=== PATIENT | female | born 1995 | race Caucasian/White ===

== ENCOUNTER 2017-04-03 22:52 | Inpatient (IN) ==
[2017-04-03] MEDS ORDERED: BRETHINE SUBQ ONE (23:15)
[2017-04-03] MEDS ORDERED: REGLAN IV ONE (23:30)
[2017-04-03] MEDS ORDERED: PEPCID IV ONE (23:30)
[2017-04-03] MEDS ORDERED: DIPRIVAN 1% ONE (23:39)
[2017-04-04] MEDS ORDERED: FENTANYL ONE (00:22)
[2017-04-04 00:23] LABS: BLOOD TYPE ARTERIAL; SAMPLE BLOOD
[2017-04-04] MEDS ORDERED: VERSED ONE (00:24)
[2017-04-04 00:27] LABS: HEMATOCRIT 38.7 % (37.0-47.0); HEMOGLOBIN 13.7 g/dL (12.0-16.0); MCH 32.8 PG (27-31); MCHC 35.4 g/dL (33-37); MCV 92.6 FL (81-99); PLT 191 X1000 (130-400); RBC 4.18 XMIL (4.2-5.4)
[2017-04-04] MEDS ORDERED: LR 1,000 ML IV SCH ×2 (00:30→01:43)
[2017-04-04] MEDS ORDERED: PEPCID PO ONE (00:30)
[2017-04-04] MEDS ORDERED: KEFZOL 1 GM/D5W 1 GM/50 ML IVPB IV PRN (00:30)
[2017-04-04] MEDS ORDERED: REGLAN PO ONE (00:30)
[2017-04-04 00:39] LABS: METHB 1.1 % (0.0-1.5); O2(CT) 8.9 mL/dL (15.0-23.0); SAMPLE BLOOD; THB 16.8 g/dL (11.5-17.4)
[2017-04-04 00:40] LABS: LACTATE > 20.00 mmoll (0.44-2.22); PCO2(98.6) 92 mmHg (35-45); PO2(98.6) 27 mmHg (60-100); pH(98.6) < 6.80 (7.35-7.45)
[2017-04-04 00:40] LABS: BASO% 0.2 % (0.0-0.8); EOS% 1.2 % (0.0-10.0); IMM GRAN% 0.7 % (0.0-0.5); LYMPH% 19.9 % (20.5-51.1); MONO% 8.2 % (1.7-9.3); MPV 10.5 FL (7.4-10.4); NEUT% 69.8 % (42.2-75.2)
[2017-04-04 00:41] LABS: ALLEN TEST NO; BLOOD TYPE CORD BLOOD; DRAW SITE UMBILICAL; MODALITY ROOM AIR
[2017-04-04 00:41] LABS: EOS# 0.21 X1000 (0.0-0.7); IMM GRAN# 0.12 X1000 (0.0-0.04); LYMPH# 3.54 X1000 (1.2-3.4); MANUAL DIFF NEEDED? NO; MONO# 1.45 X1000 (0.11-0.59)
[2017-04-04] MEDS ORDERED: QUELICIN ONE (00:42)
[2017-04-04 00:43] LABS: HEMATOCRIT 16.8 % (37.0-47.0)
[2017-04-04 00:45] LABS: HEMOGLOBIN 5.7 g/dL (12.0-16.0)
[2017-04-04] MEDS ORDERED: NS 2,000 ML ONE (00:46)
[2017-04-04] MEDS ORDERED: PITOCIN ONE (00:46)
[2017-04-04] MEDS ORDERED: PITOCIN 20 UNITS/LR 20 UNITS/1,000 ML IV.SOLN ONE (00:46)
[2017-04-04] MEDS ORDERED: LASIX IV ONE (01:19)
[2017-04-04] MEDS ORDERED: HYDROXYZINE IM PRN (01:19)
[2017-04-04] MEDS ORDERED: M-M-R II VACCINE SUBQ ONE (01:19)
[2017-04-04] MEDS ORDERED: HYDROXYZINE PO PRN (01:19)
[2017-04-04] MEDS ORDERED: PHENERGAN IM PRN (01:19)
[2017-04-04] MEDS ORDERED: NORCO-5 PO PRN (01:19)
[2017-04-04] MEDS ORDERED: CYTOTEC PO PRN (01:19)
[2017-04-04] MEDS ORDERED: DEMEROL PO PRN ×2 (01:19)
[2017-04-04] MEDS ORDERED: PITOCIN IM PRN (01:19)
[2017-04-04] MEDS ORDERED: AMBIEN PO PRN (01:19)
[2017-04-04] MEDS ORDERED: DULCOLAX PR PRN (01:19)
[2017-04-04] MEDS ORDERED: DEMEROL IM PRN (01:19)
[2017-04-04] MEDS ORDERED: BOOSTRIX VACCINE IM ONE (01:19)
[2017-04-04] MEDS ORDERED: MYLICON PO PRN (01:19)
[2017-04-04] MEDS ORDERED: PITOCIN 20 UNITS/LR 20 UNITS/1,000 ML IV.SOLN IV ONE (01:19)
[2017-04-04 01:25] LABS: INR 1.12 (0.86-1.15); PROTIME 14.7 Seconds (12.1-15.5)
[2017-04-04 01:26] LABS: HEMATOCRIT 34.2 % (37.0-47.0); PTT PL 25.7 Seconds (22.6-43.9)
[2017-04-04 01:27] LABS: HEMOGLOBIN 11.9 g/dL (12.0-16.0); MPV 10.2 FL (7.4-10.4)
[2017-04-04] MEDS ORDERED: PITOCIN 10 UNITS/LR 10 UNIT/1,000 ML IV.SOLN IV SCH (01:30)
[2017-04-04] MEDS ORDERED: NARCAN IV PRN (01:43)
[2017-04-04] MEDS ORDERED: SODIUM CHLORIDE 0.9% INJ PRN (01:43)
[2017-04-04] MEDS ORDERED: PHENERGAN IV PRN (01:43)
[2017-04-04] MEDS ORDERED: ZOFRAN IV PRN ×2 (01:43→09:20)
[2017-04-04] MEDS ORDERED: DILAUDID PCA VIAL IV PRN (01:43)
[2017-04-04] MEDS ORDERED: MEFOXIN 2 GM in NS 50 ML IV SCH (02:00)
[2017-04-04] MEDS ORDERED: SODIUM CHLORIDE 0.9% INJ ONE (03:50)
[2017-04-04 04:41] LABS: INR 1.11 (0.86-1.15); PROTIME 14.6 Seconds (12.1-15.5); PTT PL 26.4 Seconds (22.6-43.9)
[2017-04-04 04:50] LABS: BASO% 0.1 % (0.0-0.8); EOS# 0.01 X1000 (0.0-0.7); HEMATOCRIT 33.7 % (37.0-47.0); HEMOGLOBIN 11.7 g/dL (12.0-16.0); IMM GRAN# 0.14 X1000 (0.0-0.04); IMM GRAN% 0.6 % (0.0-0.5); LYMPH# 1.62 X1000 (1.2-3.4); LYMPH% 6.7 % (20.5-51.1); MANUAL DIFF NEEDED? YES; MCH 32.3 PG (27-31); MCHC 34.7 g/dL (33-37); MCV 93.1 FL (81-99); MONO# 1.63 X1000 (0.11-0.59); MONO% 6.8 % (1.7-9.3); MPV 10.8 FL (7.4-10.4); NEUT% 85.8 % (42.2-75.2); PLT 145 X1000 (130-400); RBC 3.62 XMIL (4.2-5.4)
--- NOTE | 2017-04-04 05:04 | OPERATIVE NOTE ---
PROCEDURE DATE: 04/04/2017 PREOPERATIVE DIAGNOSES: 1. Intrauterine at 38 weeks. 2. bradycardia. 3. Morbid obesity. 4. Smoker. 5. Suspected abruption. POSTOPERATIVE DIAGNOSES: 1. Intrauterine at 38 weeks. 2. bradycardia. 3. Morbid obesity. 4. Smoker. 5. Suspected abruption. PROCEDURE: Low segment transverse section. SURGEON: Chela Diggs MD. ESTIMATED BLOOD LOSS: 2500 mL. COMPLICATIONS: None. COUNTS: Unable to perform. Postprocedural abdominal x-ray negative for retained instruments and laparotomy sponges. FINDINGS: Viable male infant. Weight and Apgars currently unavailable. Grossly normal-appearing uterus, bilateral fallopian tubes and ovaries. INDICATIONS FOR PROCEDURE: The patient is a 21-year-old, G3, P1-0-1-1 with intrauterine at 38 weeks. Patient presented to labor and delivery with complaints of low back pain. Upon arrival, patient with a small amount of vaginal bleeding. However, heart tracing with persistent bradycardia in the 80s, so the decision was made to proceed to the operating room for a stat primary abdominal delivery. Risks, benefits and alternatives discussed with the patient and she desires to proceed. PROCEDURE IN DETAIL: After proper informed consent was obtained, the patient was taken to the operating room and placed in dorsal supine position with adequate general anesthesia. The abdomen was prepped and draped in normal sterile fashion for abdominal surgery. A low transverse incision was made on the skin using a scalpel. This was carried down to the underlying fascia which was scored in the midline. The fascia was stretched using sling operator's hand. Muscles were bluntly using the sling operator's hand. Peritoneum was entered bluntly and stretched using the sling operator's hand. Bladder blade was placed to protect the bladder. A low transverse incision was made on the uterus and stretched using the sling operator's hand. The fetus was delivered in the vertex presentation. Cord was doubly clamped and cut and was handed off to the awaiting pediatric staff. Placenta was delivered via fundal massage. Uterus exteriorized, cleared free of all clot and debris. The hysterotomy with a left extension was repaired with #1 chromic in a running, locking fashion. Several [id number] stitches were placed for added hemostasis. The hysterotomy was noted to be hemostatic. Posterior cul-de-sac was cleared free of all clot and debris. The uterus was returned to the abdomen. The pericolic gutters were cleared free of all clot and debris. The abdomen was copiously irrigated. The peritoneum was reapproximated using 3- 0 chromic in a running, continuous fashion. Muscles were inspected and noted to be hemostatic. The fascia was reapproximated using #1 Vicryl in a running, continuous fashion. Subcutaneous tissue was made hemostatic using Bovie electrocautery and subcutaneous tissue was reapproximated using 3-0 chromic in a running, continuous fashion. Skin was reapproximated using 4-0 Monocryl in a subcuticular fashion. Patient tolerated the procedure well and was transferred to recovery in stable condition. cc: Chela Diggs MD
[2017-04-04 05:35] LABS: BANDS 18 % (0-1); LYMPHS 8 % (21-51)
[2017-04-04 05:36] LABS: MONO 6 % (1-9)
--- NOTE | 2017-04-04 06:02 | Diag Imaging Result Doc PS360 ---
EXAM: KUB ABDOMEN HISTORY: possible hemorrhage/abruption TECHNIQUE: Two views COMPARISON: 05/24/2016 FINDINGS: The patient is rotated to the right. No bowel obstruction. No organomegaly. IMPRESSION: No abnormality identified. Electronically signed by Bradley Romero 04/04/2017 6:00 AM
[2017-04-04] MEDS: MYLICON PO SCH ×4 (08:27→21:16)
[2017-04-04] MEDS: MEFOXIN 2 GM/NS 2 GM/50 ML IVPB IV SCH ×3 (08:29→20:07)
[2017-04-04 14:40] LABS: URINE SOURCE VOIDED
[2017-04-04 14:41] LABS: BILIRUBIN URINE NEGATIVE (NEGATIVE); BLOOD URINE 1+ (NEGATIVE); CLARITY CLEAR (CLEAR); COLOR YELLOW; GLUCOSE URINE NEGATIVE (NEGATIVE); LEUKOCYTES URINE NEGATIVE (NEGATIVE); NITRITE URINE NEGATIVE (NEGATIVE); PH URINE 6.5; PROTEIN URINE TRACE mg/dL (NEGATIVE); UROBILINOGEN URINE NORMAL
[2017-04-04] MEDS: NORCO-10 PO PRN ×3 (14:51→22:38)
[2017-04-04] MEDS: MOTRIN PO PRN ×2 (14:52→22:38)
[2017-04-04 15:16] LABS: UR AMPHETAMINES QUAL NONE DETECTED (NONE DETECT); UR BARBITUATES QUAL NONE DETECTED (NONE DETECT); UR BENZODIAZEPIN QUAL PRESUMPTIVE POSITIVE (NONE DETECT); UR CANNABINOIDS QUAL NONE DETECTED (NONE DETECT); UR COCAINE QUAL NONE DETECTED (NONE DETECT); UR MDMA QUAL NONE DETECTED (NONE DETECT); UR METHADONE QUAL NONE DETECTED (NONE DETECT); UR METHAMPHETAMINE QUAL NONE DETECTED (NONE DETECT); UR OPIATES QUAL PRESUMPTIVE POSITIVE (NONE DETECT); UR OXYCODONE QUAL NONE DETECTED (NONE DETECT); UR PCP QUAL NONE DETECTED (NONE DETECT); UR TCA QUAL NONE DETECTED (NONE DETECT)
[2017-04-04] MEDS ORDERED: PERICOLACE PO SCH (21:00)
[2017-04-04] MEDS ORDERED: NICODERM PATCH TD ONE (21:19)
[2017-04-04] MEDS: NEOSPORIN OINTMENT PACKET TOP SCH (21:41)
--- NOTE | 2017-04-04 22:32 | PROGRESS NOTE ---
DATE: 04/04/2017 SUBJECTIVE: She is postop day 1 from a delivery late last night due to abruption. She is status post 2 units packed red blood cells. She is without complaints at this time. OBJECTIVE: Vital signs: Stable. She is afebrile. General: She is alert and cooperative. She is sitting up in a chair and eating and does not appear in any distress. LABORATORY VALUE: Last laboratory value of 3:50 this morning, hemoglobin and hematocrit of 11/33. ASSESSMENT AND PLAN: We will continue present management. cc: MD Chela Hyatt MD
[2017-04-05] MEDS ORDERED: LR 1,000 ML IV SCH (01:19)
[2017-04-05] MEDS: MEFOXIN 2 GM/NS 2 GM/50 ML IVPB IV SCH (02:41)
[2017-04-05] MEDS: NORCO-10 PO PRN ×2 (03:19→07:34)
[2017-04-05] MEDS: NEOSPORIN OINTMENT PACKET TOP SCH (07:34)
[2017-04-05] MEDS ORDERED: PNEUMOVAX 23 IM ONE (08:00)
[2017-04-05] MEDS: MYLICON PO SCH (09:26)
[2017-04-05 10:23] VITALS: BP 138/77
== END 2017-04-05 09:35 | disposition home or self-care (01) ==
LOC: P.OPLD 22:52 → P.LD 22:55
PROVIDERS: ADMIT Obstetrics & Gynecology; ATTEND Obstetrics & Gynecology